=== PATIENT | female | born 1980 | race Caucasian/White ===

== ENCOUNTER → 2016-05-25 | Outpatient (CLI) | payer BC ==
[~2016-05-25] MED LIST: AMOX TR-K CLV1 EAC4 PO; AUGMENTIN875 MG PO; CATAPRES0.1 MG PO; FERREX 28 TABL1 EACH PO; FLOXIN10 ML LEFT EAR; GLUCOPHAGE500 MG PO; HYDROCODON-ACE1 EAC7 PO; MOBIC15 MG PO; MULTIPLE VITAM1 EAC4 PO; PRENATAL VITAM1 EAC3 PO
== END | disposition home or self-care (01) ==
LOC: CDC 09:14
DX: Z01.810 Encounter for preprocedural cardiovascular examination (principal)
CPT/HCPCS: 93000

== ENCOUNTER 2016-06-10 06:48 | Day surgery (SDC) | payer BC ==
[~2016-06-10] VITALS: Ht 167.6 cm; Wt 92.0 kg
[2016-06-10] MEDS ORDERED: ZINC30 M1 PO (07:28)
[2016-06-10] MEDS ORDERED: LYSINE1000 MG PO (07:29)
[2016-06-10 07:30] VITALS: BP 173/99
[2016-06-10] MEDS ORDERED: ENDOCET 5-3251 EACH PO (10:21)
[2016-06-10] MEDS ORDERED: IBUPROFEN800 MG PO (10:21)
[2016-06-10 11:42] VITALS: BP 108/64; BP 164/89
[2016-06-10 12:56] VITALS: BP 166/86
[2016-06-10 14:08] VITALS: BP 167/88
== END 2016-06-10 14:27 | disposition home or self-care (01) ==
LOC: SDC 06:48
DX: N85.02 Endometrial intraepithelial neoplasia [EIN] (principal); I10 Essential (primary) hypertension
CPT/HCPCS: 88307; J0330; J0690; J1100; J1170; J1200; J1885; J2250; J2405; J2710; J2765; J3010

== ENCOUNTER 2017-01-28 20:46 | Emergency (ER) | payer BC ==
[~2017-01-28] VITALS: Ht 167.6 cm; Wt 91.3 kg
[~2017-01-28 20:46] MED LIST changes: +ENDOCET 5-3251 EACH PO; +IBUPROFEN800 MG PO; +LYSINE1000 MG PO; +ZINC30 M1 PO
[2017-01-28 21:11] LABS: ADD MIUA? YES; BILIRUBIN NEGATIVE; BLOOD MODERATE; COLOR YELLOW ((YELLOW)); GLUCOSE (STRIP) NEGATIVE; KETONES NEGATIVE; LEUKOCYTES LARGE; NITRITE NEGATIVE; PROTEIN (STRIP) 100; SPECIFIC GRAVITY 1.013 (1.000-1.030); UROBILINOGEN 0.2 MG/DL (0.2-1.0)
[2017-01-28 21:22] LABS: BACTERIA RARE /HPF; EPITHELIAL CELLS RARE /HPF; MUCUS NONE SEEN /LPF; RED BLOOD CELLS TNTC /HPF (0-5); UCUL ADDED? YES; WHITE BLOOD CELLS TNTC /HPF (0-5)
[2017-01-28] MEDS ORDERED: BACTRIM,SEPT1 TABLET PO (21:27)
[2017-01-28 21:50] VITALS: BP 152/98
== END 2017-01-28 21:51 | disposition home or self-care (01) ==
LOC: EXP 20:46 → EME 20:46 → EXP 21:51
DX: N39.0 Urinary tract infection, site not specified (principal); I10 Essential (primary) hypertension; Z90.710 Acquired absence of both cervix and uterus; Z87.891 Personal history of nicotine dependence
CPT/HCPCS: 81003; 87077; 87086; 87186; 99281; 99283